=== PATIENT | male | born 1955 | race Caucasian/White ===

== ENCOUNTER 2022-05-21 13:35 | Outpatient (CLI) | payer MEDICAID, MEDICARE ==
[~2022-05-21] VITALS: Ht 175.3 cm; Wt 93.2 kg
[~2022-05-21 13:35] MED LIST: ASPI-875 PO; GLIPIZIDE; LISINOPRIL; METF-380 PO; RABE20TA PO
[2022-05-21] MEDS ORDERED: LIRA0.6P3 SQ (14:17)
[2022-05-21] MEDS ORDERED: OMEP40CA6 PO (14:17)
[2022-05-21] MEDS ORDERED: AMLO2.5T4 PO (14:17)
[2022-05-21] MEDS ORDERED: FERR159T2 PO (14:17)
[2022-05-21] MEDS ORDERED: MULT-1136 PO (14:17)
[2022-05-21] MEDS ORDERED: INSU100V5 SQ (14:17)
[2022-05-21] MEDS ORDERED: ESCI-2 PO (14:17)
[2022-05-21] MEDS ORDERED: SIMV20TA26 PO (14:17)
== END 2022-05-21 14:22 | disposition home or self-care (01) ==
LOC: PREOP 13:35
PROVIDERS: ATTEND Otolaryngology Otolaryngology/Facial Plastic Surgery
DX: Z01.818 Encounter for other preprocedural examination (principal)

== ENCOUNTER 2022-05-25 07:32 | Day surgery (SDC) | payer MEDICARE, OTHER ==
[2022-05-25] VITALS (11 sets, daily range): BP systolic 132–150; BP diastolic 78–105
[~2022-05-25] VITALS: Ht 175.3 cm; Wt 93.2 kg
[~2022-05-25 07:32] MED LIST changes: +AMLO2.5T4 PO; +ESCI-2 PO; +FERR159T2 PO; +INSU100V5 SQ; +LIRA0.6P3 SQ; +MULT-1136 PO; +OMEP40CA6 PO; +SIMV20TA26 PO
[2022-05-25] MEDS ORDERED: LIDOCAINE/EPI 1%-1:100,000 (XYLOCAINE) 30ML ONE (08:31)
--- NOTE | 2022-05-25 09:07 | Progress Note-Pre Operative ---
Pre-Operative Progress Note Date of Available H&P: May 25, 2022 Date H&P Reviewed: May 25, 2022 Time H&P Reviewed: 09:00 History & Physical: H&P Reviewed, Patient Examed, No changes noted Changes from last HP none Pre-Operative Diagnosis: Left Chester Lesion, Posterior Scalp Lesion ROSALBA PRAKSAH MD May 25, 2022 09:07
[2022-05-25] MEDS ORDERED: MIDAZOLAM 2 MG/2 ML (VERSED) VIAL ONE (09:08)
[2022-05-25] MEDS ORDERED: LIDOCAINE PF 2% 5 ML (XYLOCAINE) VIAL ONE (09:08)
[2022-05-25] MEDS ORDERED: proPOfol 200 MG/20 ML (DIPRIVAN) VIAL IV ONE ×2 (09:08→10:39)
[2022-05-25] MEDS ORDERED: ONDANSETRON 4 MG/2 ML (SDV) Z0FRAN ONE ×2 (09:08→09:24)
[2022-05-25] MEDS ORDERED: fentaNYL INJ 100 MCG/2 ML AMP ONE (09:08)
[2022-05-25] MEDS ORDERED: SEVOFLURANE (ULTANE) 15 ML INHAL SOLN ONE ×3 (09:08→11:08)
[2022-05-25] MEDS ORDERED: FAMOTIDINE 20MG/2ML IV (PEPCID) ONE (09:24)
[2022-05-25] MEDS: LACTATED RINGERS 1,000 ML IV PRN ×2 (09:30→10:48)
[2022-05-25 09:50] LABS: BASOPHILS % (AUTO) 0 % (0-10); EOSINOPHILS # (AUTO) 0.6 10^3/uL (0.0-0.3); EOSINOPHILS % (AUTO) 9 % (0-10); HEMATOCRIT 43 % (40-54); HEMOGLOBIN 13.6 g/dL (13.3-17.7); LYMPHOCYTES # (AUTO) 1.6 10^3/uL (1.0-4.0); LYMPHOCYTES % (AUTO) 22 % (12-44); MEAN CORPUSCULAR HEMOGLOBIN 26 pg (25-34); MEAN CORPUSCULAR HGB CONC 32 g/dL (32-36); MEAN CORPUSCULAR VOLUME 81 fL (80-99); MEAN PLATELET VOLUME 9.6 fL (9.0-12.2); MONOCYTES # (AUTO) 0.6 10^3/uL (0.0-1.0); MONOCYTES % (AUTO) 8 % (0-12); NEUTROPHILS # (AUTO) 4.3 10^3/uL (1.8-7.8); NEUTROPHILS % (AUTO) 61 % (42-75); PLATELET COUNT 215 10^3/uL (130-400); WHITE BLOOD COUNT 7.1 10^3/uL (4.3-11.0)
[2022-05-25] MEDS ORDERED: PHENYLEPHRINE 100 MCG/ML 10 ML (ANESTHESIA) SYR ONE (09:58)
[2022-05-25 10:01] LABS: BILIRUBIN,TOTAL 0.3 MG/DL (0.1-1.0); CALCIUM 9.9 MG/DL (8.5-10.1); CREATININE SERUM 1.09 MG/DL (0.60-1.30); POTASSIUM 4.1 MMOL/L (3.6-5.0); TOTAL PROTEIN 7.3 GM/DL (6.4-8.2)
[2022-05-25] MEDS ORDERED: MUPIROCIN 2% OINT 22 GM (BACTROBAN) TUBE ONE (10:14)
[2022-05-25] MEDS ORDERED: LIDOCAINE/EPI 1%-1:100,000 (XYLOCAINE) 30ML INJ ONE (10:15)
[2022-05-25] MEDS ORDERED: MUPIROCIN 2% OINT 22 GM (BACTROBAN) TUBE TOP ONE (10:15)
--- NOTE | 2022-05-25 10:20 | Progress Note-Post Operative ---
Post-Operative Progess Note Surgeon (s)/Domestic Violence Advocate (s) Surgeon ROSALBA PRAKASH MD Domestic Violence Advocate n/a Pre-Operative Diagnosis Left Faith Lesion, Posterior Scalp Lesion Post-Operative Diagnosis same Post-Op Procedure Note Date of Procedure: May 25, 2022 Name of Procedure Performed: Excision of Left Faith Lesion with INtermediate Repair, Excision of Posterior Scalp Lesion with Intermediate Repair Description & Findings Description and Findings: n/a Anesthesia Type get Estimated Blood Loss minimal Packing none. Specimen(s) collected/removed left yazidism lesion, posterior Scalp lesion ROSALBA PRAKASH MD May 25, 2022 10:20
[2022-05-25] MEDS ORDERED: GLYCOPYRROLATE 0.2 MG/ML (ROBINUL) 2 ML VIAL ONE ×2 (10:22→10:42)
[2022-05-25] MEDS ORDERED: HYDROcodone/APAP 5 MG/325 MG (LORTAB) TAB PO PRN (10:30)
[2022-05-25] MEDS ORDERED: ACETAMINOPHEN 325 MG TABLET PO PRN (10:30)
[2022-05-25] MEDS ORDERED: ROCURONIUM 50 MG/5 ML (ZEMURON) VIAL IV ONE (10:41)
[2022-05-25] MEDS ORDERED: NEOSTIGMINE (BLOXIVERZ ) 1 MG/1ML 10 ML VIAL ONE (10:42)
[2022-05-25] MEDS ORDERED: ONDANSETRON 4 MG/2 ML (SDV) Z0FRAN IVP PRN (11:15)
[2022-05-25] MEDS ORDERED: HYDROmorphone 2 MG/ML VIAL (DILAUDID) IV ONE (11:15)
[2022-05-25] MEDS ORDERED: CEPH500T PO (12:56)
[2022-05-25] MEDS ORDERED: ACHD5005 PO (12:56)
[2022-05-25] MEDS ORDERED: ONDANSETRON 4 MG/2 ML (SDV) Z0FRAN IV ONE (14:45)
[2022-05-25] MEDS ORDERED: FAMOTIDINE 20MG/2ML IV (PEPCID) IV ONE (14:45)
--- NOTE | 2022-05-29 03:36 | Anesthesia-General Post-Op ---
General Patient Condition Mental Status/LOC: Same as Preop Cardiovascular: Satisfactory Nausea/Vomiting: Absent Respiratory: Satisfactory Pain: Controlled Complications: Absent Post Op Complications Complications None Follow Up Care/Instructions Patient Instructions None needed. Anesthesia/Patient Condition Patient Condition Patient is doing well, no complaints, stable vital signs, no apparent adverse anesthesia problems. No complications reported per nursing. [place] [facility]: [place] DORCAS GODOY CRNA May 29, 2022 03:36
== END 2022-05-25 13:35 | disposition home or self-care (01) ==
LOC: SDC 07:32
PROVIDERS: ATTEND Otolaryngology Otolaryngology/Facial Plastic Surgery
DX: C44.42 Squamous cell carcinoma of skin of scalp and neck (principal); C44.329 Squamous cell carcinoma of skin of other parts of face
CPT/HCPCS: 36415; 80053; 82947; 85025; 87081; 93005